=== PATIENT | female | born 1970 | race Caucasian/White ===

== ENCOUNTER 2023-11-30 16:40 | Emergency (ER) | payer MEDICAID, OTHER ==
[~2023-11-30] VITALS: Ht 165.1 cm; Wt 72.3 kg
[2023-11-30 17:01] VITALS: BP 100/70; RESP 18; O2SAT 97
[2023-11-30 17:49] LABS: Basophils # (auto) 0 10 ^3/uL (0-0.2); Basophils % (auto) 0.3 % (0.0-2.0); Eosinophils # (auto) 0 10 ^3/uL (0-0.8); Hematocrit 43.4 % (36.0-46.0); Hemoglobin 13.7 g/dL (12.2-16.2); Lymphocytes # (auto) 0.6 10 ^3/uL (0.4-5.4); Lymphocytes % (auto) 23.7 % (10.0-50.0); Mean Corpuscular Hemoglobin 28.1 pg (28.0-32.0); Mean Corpuscular Hgb Conc. 31.6 g/dL (32.0-36.0); Mean Corpuscular Volume 89.2 fL (80.0-100.0); Monocytes # (auto) 0.2 10 ^3/uL (0-1.3); Monocytes % (auto) 7.7 % (0.0-12.0); Neutrophils # (auto) 1.6 10 ^3/uL (1.6-8.6); Neutrophils % (auto) 68.3 % (37.0-80.0); Nucleated Red Blood Cells % 1.3 %; Red Blood Cells 4.86 10^6/uL (4.0-5.20); White Blood Cell 2.3 10^3/uL (4.4-10.8)
[2023-11-30 17:53] LABS: Red Cell Distribution Width 21.1 % (11.8-14.3)
[2023-11-30 18:11] LABS: Alanine Aminotransferase 39 U/L (7-40); Albumin 3.2 g/dL (3.2-4.8); Alkaline Phosphatase 162 U/L (46-116); Anion Gap 11 (5-15); Aspartate Aminotransferase 101 U/L (13-40); BUN/Creatinine Ratio 26.3 (10.0-20.0); Bilirubin, Total 1.6 mg/dL (0.2-1.0); Blood Urea Nitrogen 15 mg/dL (9-23); Calcium 7.7 mg/dL (8.7-10.4); Carbon Dioxide 27 mmol/L (20-30); Chloride 99 mmol/L (98-107); Glucose 115 mg/dL (74-106); Potassium 3.9 mmol/L (3.5-5.1); Sodium 137 mmol/L (136-145); Total Protein 5.6 g/dL (5.7-8.2)
[2023-11-30 18:46] LABS: Urine Bacteria FEW /hpf (None Seen); Urine Blood Negative /uL (Negative); Urine Clarity Clear (Clear); Urine Color Yellow (Yellow); Urine Protein, UAD 2+ (Negative); Urine Specific Gravity 1.021 (1.001-1.035); Urine Urobilinogen >12.0 mg/dL (Negative); Urine WBC 2 /hpf (0 - 5)
[2023-11-30] MEDS ORDERED: FUROSEMIDE 40 MG/4 ML VIAL IV ONE (22:15)
[2023-11-30 22:35] VITALS: PULSE 99
== END 2023-12-01 01:20 | disposition left against medical advice (07) ==
LOC: ER 16:40
DX: R22.43 Localized swelling, mass and lump, lower limb, bilateral (principal); R53.1 Weakness; R79.89 Other specified abnormal findings of blood chemistry; R07.89 Other chest pain; I50.9 Heart failure, unspecified; I25.2 Old myocardial infarction; Z87.891 Personal history of nicotine dependence
CPT/HCPCS: 36415; 71045; 80053; 80320; 81001; 83880; 84484; 85025; 93005; 93970

== ENCOUNTER 2023-12-19 14:05 | Inpatient (IN) | payer MEDICAID ==
[~2023-12-19] VITALS: Ht 165.1 cm; Wt 66.5 kg
[2023-12-19] MEDS ORDERED: FUROSEMIDE 40 MG/4 ML VIAL IV ONE (14:30)
[2023-12-19 14:51] LABS: Basophils # (auto) 0.1 10 ^3/uL (0-0.2); Basophils % (auto) 0.7 % (0.0-2.0); Eosinophils # (auto) 0 10 ^3/uL (0-0.8); Eosinophils % (auto) 0.1 % (0.0-7.0); Hematocrit 38.6 % (36.0-46.0); Lymphocytes # (auto) 1.6 10 ^3/uL (0.4-5.4); Lymphocytes % (auto) 20.8 % (10.0-50.0); Mean Corpuscular Hemoglobin 29.3 pg (28.0-32.0); Mean Corpuscular Hgb Conc. 31.2 g/dL (32.0-36.0); Mean Corpuscular Volume 93.8 fL (80.0-100.0); Monocytes # (auto) 1.1 10 ^3/uL (0-1.3); Monocytes % (auto) 13.6 % (0.0-12.0); Neutrophils % (auto) 64.8 % (37.0-80.0); Nucleated Red Blood Cells % 0.9 %; Red Blood Cells 4.11 10^6/uL (4.0-5.20); White Blood Cell 7.8 10^3/uL (4.4-10.8)
[2023-12-19 15:00] LABS: Red Cell Distribution Width 25.6 % (11.8-14.3)
[2023-12-19 15:23] LABS: Chloride 106 mmol/L (98-107); Potassium 4.4 mmol/L (3.5-5.1); Sodium 139 mmol/L (136-145)
[2023-12-19 15:24] LABS: Erythrocyte Sedimentation Rate 53 mm/hr (0-20)
[2023-12-19 15:26] LABS: Anion Gap 11 (5-15); Calcium 7.9 mg/dL (8.7-10.4); Carbon Dioxide 22 mmol/L (20-30)
[2023-12-19 15:31] LABS: Alkaline Phosphatase 210 U/L (46-116); BUN/Creatinine Ratio 32.1 (10.0-20.0); Blood Urea Nitrogen 18 mg/dL (9-23); Glucose 121 mg/dL (74-106)
[2023-12-19 15:32] LABS: Magnesium 1.7 mg/dL (1.6-2.6)
[2023-12-19 15:33] LABS: Alanine Aminotransferase 36 U/L (7-40); Albumin 2.7 g/dL (3.2-4.8); Aspartate Aminotransferase 58 U/L (13-40); Bilirubin, Total 3.2 mg/dL (0.2-1.0); Total Protein 5.7 g/dL (5.7-8.2)
[2023-12-19] MEDS ORDERED: MORPHINE SULFATE INJ 2 MG/ml SYRG IV PRN (16:15)
[2023-12-19] MEDS ORDERED: NITROGLYCERIN 0.4 MG SL TAB SL PRN (16:15)
[2023-12-19] MEDS ORDERED: DOCUSATE SOD 100 MG CAP PO PRN (16:15)
[2023-12-19] MEDS ORDERED: ONDANSETRON HCL 4 MG/2 ML VIAL IV PRN (16:15)
[2023-12-19 18:20] LABS: Triglycerides 75 mg/dL (< 150)
[2023-12-19 18:21] LABS: LDL Cholesterol 35 mg/dL (< 100)
[2023-12-19 18:22] LABS: Cholesterol 72 mg/dL (< 200); HDL Cholesterol 22 mg/dL (40-59)
[2023-12-19 19:03] LABS: Lactic Acid w/Reflex 2.3 mmol/L (0.4-2.0)
[2023-12-19] MEDS: FUROSEMIDE 40 MG/4 ML VIAL IV SCH (20:45)
[2023-12-20] MEDS: ENOXAPARIN SOD 100 MG/1 ML SYRINGE SC SCH ×4 (00:38→23:54)
[2023-12-20] MEDS: HYDROcodone-ACET 5/325MG TAB PO PRN ×2 (00:38→20:29)
[2023-12-20] MEDS: PIPERACILLIN-TAZOB 3.375GM 100 ML IV SCH ×4 (00:38→23:43)
[2023-12-20] MEDS: ENOXAPARIN SOD 80 MG/0.8ML SYRINGE SC ONE ×2 (00:46→00:48)
[2023-12-20 01:10] LABS: Amphetamine Screen, Urine Pos (NEGATIVE); Barbiturate Scree,Urine Neg (NEGATIVE); Benzodiazephine Screen, Urine Neg (NEGATIVE); Cocaine Screen, Urine Neg (NEGATIVE)
[2023-12-20 01:11] LABS: Cannabinoid Screen, Urine Pos (NEGATIVE); Opiate Scree,Urine Neg (NEGATIVE); Phencyclidine Screen, Urine Neg (NEGATIVE)
[2023-12-20] MEDS ORDERED: IOHEXOL 350 MG/ML 100ML IJ ONE (01:28)
[2023-12-20 01:34] VITALS: PULSE 123; RESP 25; O2SAT 96
[2023-12-20] MEDS: FUROSEMIDE 40 MG/4 ML VIAL IV SCH ×2 (06:07→18:45)
[2023-12-20 06:27] LABS: Hematocrit 37.3 % (36.0-46.0); Hemoglobin 11.6 g/dL (12.2-16.2); Mean Corpuscular Hgb Conc. 31.1 g/dL (32.0-36.0); Mean Corpuscular Volume 93.3 fL (80.0-100.0); White Blood Cell 9.4 10^3/uL (4.4-10.8)
[2023-12-20 06:39] LABS: Alanine Aminotransferase 29 U/L (7-40); Albumin 2.9 g/dL (3.2-4.8); Alkaline Phosphatase 201 U/L (46-116); Anion Gap 6 (5-15); Aspartate Aminotransferase 48 U/L (13-40); BUN/Creatinine Ratio 18.8 (10.0-20.0); Blood Urea Nitrogen 15 mg/dL (9-23); Calcium 8.5 mg/dL (8.5-10.1); Carbon Dioxide 27 mmol/L (20-30); Chloride 104 mmol/L (98-107); Glucose 150 mg/dL (74-106); Potassium 4.1 mmol/L (3.5-5.1); Sodium 137 mmol/L (136-145)
[2023-12-20 06:40] LABS: Bilirubin, Total 2.7 mg/dL (0.2-1.0); Total Protein 6.2 g/dL (5.7-8.2)
[2023-12-20 07:14] LABS: Basophils % (manual) 0 (0.0-2.0); Blast Cells 0; Eosinophils % (manual) 0 (0-7); Myelocytes % 0; Promyelocytes % 0; Reactive Lymphocytes 0; Red Cell Distribution Width 25.4 % (11.8-14.3)
[2023-12-20 08:00] VITALS: PULSE 109; RESP 15; O2SAT 98
[2023-12-20] MEDS ORDERED: ENOXAPARIN SOD 40 MG/0.4 ML SYRINGE SC SCH (10:00)
[2023-12-20] MEDS ORDERED: ENOXAPARIN SOD 100 MG/1 ML SYRINGE SC SCH (10:00)
[2023-12-20] MEDS: NICOTINE 7MG/24HR TOPICAL PATCH TD SCH (10:00)
[2023-12-20 13:28] LABS: Band Neutrophils % (manual) 2; Lymphocytes % (manual) 31 (10.0-50.0); Metamyelocytes % 1; Monocytes % (manual) 12 (0-12)
[2023-12-20 13:29] LABS: Platelet Estimate Adequate
[2023-12-20 22:00] VITALS: BP 97/68; PULSE 133; PULSE 70; RESP 19; RESP 22; TEMP 98.4; O2SAT 92
[2023-12-20] MEDS ORDERED: LOSA25TA15 PO (22:43)
[2023-12-20] MEDS ORDERED: METO25TA93 PO (22:43)
[2023-12-20] MEDS ORDERED: FURO20TA3 PO (22:45)
[2023-12-21] VITALS (8 sets, daily range): BP systolic 114–122; BP diastolic 67–85; PULSE 117–134; RESP 17–22; TEMP 97.7–97.8; O2SAT 93–98
[2023-12-21] MEDS ORDERED: METOPROLOL TARTRATE 1MG/1ML-5ML VIAL IV ONE (04:00)
[2023-12-21 04:48] LABS: Alanine Aminotransferase 27 U/L (7-40); Albumin 2.7 g/dL (3.2-4.8); Alkaline Phosphatase 166 U/L (46-116); Anion Gap 4 (5-15); Aspartate Aminotransferase 48 U/L (13-40); BUN/Creatinine Ratio 24.1 (10.0-20.0); Blood Urea Nitrogen 14 mg/dL (9-23); Calcium 8.2 mg/dL (8.7-10.4); Carbon Dioxide 29 mmol/L (20-30); Chloride 103 mmol/L (98-107); Glucose 114 mg/dL (74-106); Magnesium 1.7 mg/dL (1.6-2.6); Potassium 3.9 mmol/L (3.5-5.1); Sodium 136 mmol/L (136-145)
[2023-12-21 04:49] LABS: Bilirubin, Total 2.2 mg/dL (0.2-1.0)
[2023-12-21] MEDS: FUROSEMIDE 40 MG/4 ML VIAL IV SCH ×2 (06:42→18:07)
[2023-12-21] MEDS: PIPERACILLIN-TAZOB 3.375GM 100 ML IV SCH ×3 (06:42→23:13)
[2023-12-21] MEDS: HYDROcodone-ACET 5/325MG TAB PO PRN ×2 (08:24→14:53)
[2023-12-21] MEDS: ENOXAPARIN SOD 100 MG/1 ML SYRINGE SC SCH (10:43)
[2023-12-21] MEDS: NICOTINE 7MG/24HR TOPICAL PATCH TD SCH (10:44)
[2023-12-21] MEDS: ACETAMINOPHEN 325 MG TAB PO PRN (18:07)
[2023-12-21] MEDS ORDERED: TEMAZEPAM 15 MG CAP PO ONE (21:15)
[2023-12-21] MEDS: ENOXAPARIN SOD 80 MG/0.8ML SYRINGE SC SCH (23:13)
[2023-12-21 23:36] LABS: Potassium 4.3 mmol/L (3.5-5.1)
[2023-12-21 23:43] LABS: Magnesium 1.7 mg/dL (1.6-2.6)
[2023-12-22] VITALS (7 sets, daily range): BP systolic 120–152; BP diastolic 67–96; PULSE 134–138; RESP 18–20; TEMP 97.1–98.4; O2SAT 94–97
[2023-12-22] MEDS: MAGNESIUM SULFATE 1GM/100ML 100 ML IV SCH ×2 (07:56→10:09)
[2023-12-22] MEDS: FUROSEMIDE 40 MG/4 ML VIAL IV SCH ×2 (07:57→17:53)
[2023-12-22] MEDS: ENOXAPARIN SOD 80 MG/0.8ML SYRINGE SC SCH (08:37)
[2023-12-22] MEDS: NICOTINE 7MG/24HR TOPICAL PATCH TD SCH (08:38)
[2023-12-22] MEDS: HYDROcodone-ACET 5/325MG TAB PO PRN ×3 (08:38→19:50)
[2023-12-22] MEDS: PIPERACILLIN-TAZOB 3.375GM 100 ML IV SCH (13:35)
[2023-12-23] VITALS (7 sets, daily range): BP systolic 112–138; BP diastolic 20–89; PULSE 117–138; RESP 15–21; TEMP 96.7–98; O2SAT 90–95
[2023-12-23] MEDS: ENOXAPARIN SOD 80 MG/0.8ML SYRINGE SC SCH ×3 (00:15→21:34)
[2023-12-23] MEDS: PIPERACILLIN-TAZOB 3.375GM 100 ML IV SCH ×4 (00:15→21:22)
[2023-12-23] MEDS: HYDROcodone-ACET 5/325MG TAB PO PRN ×4 (04:55→20:08)
[2023-12-23] MEDS: FUROSEMIDE 40 MG/4 ML VIAL IV SCH ×2 (07:37→18:08)
[2023-12-23 08:27] LABS: Hepatitis B Surface Antigen Negative (Negative)
[2023-12-23] MEDS: NICOTINE 7MG/24HR TOPICAL PATCH TD SCH (09:40)
[2023-12-23 09:48] LABS: Hepatitis C Antibody Reactive (Negative)
[2023-12-23] MEDS ORDERED: METOPROLOL SUCCINATE XL 50 MG TAB PO ONE (11:15)
[2023-12-23] MEDS: METOPROLOL TARTRATE 25 MG TAB PO SCH (21:28)
[2023-12-24] MEDS: HYDROcodone-ACET 5/325MG TAB PO PRN ×3 (00:18→11:18)
[2023-12-24 05:00] VITALS: BP 122/89; PULSE 105; RESP 17; TEMP 97.5; O2SAT 93
[2023-12-24] MEDS: ACETAMINOPHEN 325 MG TAB PO PRN (05:04)
[2023-12-24] MEDS: PIPERACILLIN-TAZOB 3.375GM 100 ML IV SCH ×2 (06:24→13:52)
[2023-12-24] MEDS: FUROSEMIDE 40 MG/4 ML VIAL IV SCH (06:28)
[2023-12-24 08:00] VITALS: PULSE 107; PULSE 109; RESP 20; O2SAT 95
[2023-12-24 09:27] VITALS: BP 110/69; PULSE 64; RESP 20; TEMP 98.4; O2SAT 91
[2023-12-24] MEDS: METOPROLOL TARTRATE 25 MG TAB PO SCH (09:34)
[2023-12-24] MEDS: ENOXAPARIN SOD 80 MG/0.8ML SYRINGE SC SCH (09:34)
[2023-12-24] MEDS: NICOTINE 7MG/24HR TOPICAL PATCH TD SCH (09:35)
[2023-12-24] MEDS ORDERED: METOPROLOL SUCCINATE XL 50 MG TAB PO SCH (10:00)
[2023-12-24] MEDS ORDERED: APIXABAN 5 MG TAB PO SCH (11:30)
[2023-12-24] MEDS ORDERED: APIX5TAB PO (12:45)
[2023-12-24] MEDS ORDERED: AUG875T PO (12:45)
[2023-12-24 13:00] VITALS: BP_SYST 75; PULSE 56; RESP 19; TEMP 97.9; O2SAT 96
[2023-12-24 13:17] VITALS: BP 114/85; PULSE 104; TEMP 36.9
== END 2023-12-24 15:45 | disposition home or self-care (01) | DRG 133 ==
LOC: EDBD 14:05 → ER 14:05 → TELE 16:16 → TELE-WESTW 12-20 19:21
PROVIDERS: ADMIT Internal Medicine; ATTEND Internal Medicine
DX: J96.01 Acute respiratory failure with hypoxia (principal); I26.99 Other pulmonary embolism without acute cor pulmonale; I50.43 Acute on chronic combined systolic (congestive) and diastolic (congestive) heart failure; I82.402 Acute embolism and thrombosis of unspecified deep veins of left lower extremity; I42.9 Cardiomyopathy, unspecified; J18.9 Pneumonia, unspecified organism; F15.10 Other stimulant abuse, uncomplicated; E66.9 Obesity, unspecified; F17.210 Nicotine dependence, cigarettes, uncomplicated; I45.10 Unspecified right bundle-branch block; B19.20 Unspecified viral hepatitis C without hepatic coma; Z71.51 Drug abuse counseling and surveillance of drug abuser; I25.2 Old myocardial infarction; Z91.199 Patient's noncompliance with other medical treatment and regimen due to unspecified reason; Z79.01 Long term (current) use of anticoagulants; Z79.899 Other long term (current) drug therapy; Z86.711 Personal history of pulmonary embolism; Z86.718 Personal history of other venous thrombosis and embolism; Z91.148 Patient's other noncompliance with medication regimen for other reason; Z71.6 Tobacco abuse counseling; Z82.49 Family history of ischemic heart disease and other diseases of the circulatory system; Z68.30 Body mass index [BMI] 30.0-30.9, adult
CPT/HCPCS: 36415; 71045; 71275; 80053; 80061; 80307; 83036; 83605; 83735; 83880; 84132; 84443; 84484; 84702; 85007; 85025; 85027; 85379; 85652; 86803; 87077; 87186; 87205; 87340; 93005; 93306; 93926; 93970; 96374; 96375; 99291; G0378; J2543

== ENCOUNTER 2024-07-09 13:55 | Inpatient (IN) | payer MEDICAID ==
[~2024-07-09] VITALS: Ht 160 cm; Wt 68.7 kg
[~2024-07-09 13:55] MED LIST: APIX5TAB PO; AUG875T PO; FURO20TA3 PO; LOSA-533 PO; METO25TA93 PO
[2024-07-09 14:21] VITALS: PULSE 99; RESP 17; O2SAT 99
[2024-07-09 14:24] LABS: Basophils # (auto) 0.1 10 ^3/uL (0-0.2); Basophils % (auto) 1.2 % (0.0-2.0); Eosinophils # (auto) 0 10 ^3/uL (0-0.8); Lymphocytes # (auto) 1.1 10 ^3/uL (0.4-5.4); Neutrophils # (auto) 2.7 10 ^3/uL (1.6-8.6); White Blood Cell 4.7 10^3/uL (4.4-10.8)
[2024-07-09 14:31] LABS: Eosinophils % (auto) 0.7 % (0.0-7.0); Hematocrit 38.2 % (36.0-46.0); Mean Corpuscular Hemoglobin 26.8 pg (28.0-32.0); Mean Corpuscular Hgb Conc. 31.4 g/dL (32.0-36.0); Mean Corpuscular Volume 85.4 fL (80.0-100.0); Monocytes # (auto) 0.8 10 ^3/uL (0-1.3); Monocytes % (auto) 17.7 % (0.0-12.0); Neutrophils % (auto) 57.4 % (37.0-80.0); Nucleated Red Blood Cells % 0.4 %; Platelet Count (auto) 153 10^3/uL (140-450); Red Blood Cells 4.47 10^6/uL (4.0-5.20); Red Cell Distribution Width 23.7 % (11.8-14.3)
[2024-07-09 14:37] LABS: Chloride 101 mmol/L (98-107); Potassium 3.8 mmol/L (3.5-5.1); Sodium 140 mmol/L (136-145)
[2024-07-09 14:38] LABS: Anion Gap 8 (5-15); Calcium 10.2 mg/dL (8.7-10.4); Carbon Dioxide 31 mmol/L (20-30)
[2024-07-09 14:43] LABS: Blood Urea Nitrogen 12 mg/dL (9-23); Glucose 102 mg/dL (74-106)
[2024-07-09] MEDS: SODIUM CHLORIDE 0.9% 1,000 ML IVB ONE (15:39)
[2024-07-09] MEDS: ONDANSETRON HCL 4 MG/2 ML VIAL IV ONE (16:39)
[2024-07-09] MEDS: MORPHINE SULFATE 4 MG/ML SYR/VIAL IV ONE (16:40)
[2024-07-09] MEDS ORDERED: DOCUSATE SOD 100 MG CAP PO PRN (17:15)
[2024-07-09] MEDS ORDERED: ACETAMINOPHEN 325 MG TAB PO PRN (17:15)
[2024-07-09] MEDS: FUROSEMIDE 40 MG/4 ML VIAL IV SCH (18:31)
[2024-07-09 19:23] LABS: Urine Bacteria FEW /hpf (None Seen); Urine Blood Negative /uL (Negative); Urine Clarity Turbid (Clear); Urine Color Yellow (Yellow); Urine Hyaline Cast FEW /lpf (0 - 2); Urine Mucus FEW (None Seen); Urine Protein, UAD 1+ (Negative); Urine Specific Gravity 1.017 (1.001-1.035); Urine Urobilinogen Normal (Negative); Urine WBC 30 /hpf (0 - 5); Urine WBC Clumps PRESENT /hpf (None Seen); Urine pH 5.5 (5.0-9.0)
[2024-07-09 19:36] LABS: Amphetamine Screen, Urine Neg (NEGATIVE); Benzodiazephine Screen, Urine Neg (NEGATIVE)
[2024-07-09 19:37] LABS: Barbiturate Scree,Urine Neg (NEGATIVE); Cocaine Screen, Urine Neg (NEGATIVE)
[2024-07-09 19:38] LABS: Cannabinoid Screen, Urine Pos (NEGATIVE); Opiate Scree,Urine Pos (NEGATIVE); Phencyclidine Screen, Urine Neg (NEGATIVE)
[2024-07-09 20:42] VITALS: PULSE 92; RESP 16; O2SAT 96
[2024-07-09] MEDS: APIXABAN 5 MG TAB PO SCH (22:23)
[2024-07-09] MEDS: HYDROmorphone HCL 2 MG/ML VL/or syr IV PRN (22:24)
[2024-07-09] MEDS: SODIUM CHLOR 0.9% PF (SALINE LOCK) 10ML VIAL/SYR IV SCH (22:25)
[2024-07-09] MEDS: ONDANSETRON HCL 4 MG/2 ML VIAL IV PRN (22:34)
[2024-07-10 04:13] LABS: Basophils # (auto) 0.1 10 ^3/uL (0-0.2); Basophils % (auto) 1.4 % (0.0-2.0); Eosinophils # (auto) 0 10 ^3/uL (0-0.8); Eosinophils % (auto) 0.8 % (0.0-7.0); Hematocrit 40.9 % (36.0-46.0); Hemoglobin 12.4 g/dL (12.2-16.2); Lymphocytes # (auto) 1.5 10 ^3/uL (0.4-5.4); Lymphocytes % (auto) 30.8 % (10.0-50.0); Mean Corpuscular Hemoglobin 26.7 pg (28.0-32.0); Mean Corpuscular Hgb Conc. 30.4 g/dL (32.0-36.0); Mean Corpuscular Volume 87.9 fL (80.0-100.0); Monocytes # (auto) 0.9 10 ^3/uL (0-1.3); Monocytes % (auto) 17.7 % (0.0-12.0); Neutrophils # (auto) 2.5 10 ^3/uL (1.6-8.6); Neutrophils % (auto) 49.3 % (37.0-80.0); Nucleated Red Blood Cells % 0.4 %; Platelet Count (auto) 155 10^3/uL (140-450); Red Blood Cells 4.66 10^6/uL (4.0-5.20); Red Cell Distribution Width 23.8 % (11.8-14.3)
[2024-07-10 04:28] LABS: Alanine Aminotransferase 34 U/L (7-40); Albumin 3.7 g/dL (3.2-4.8); Alkaline Phosphatase 143 U/L (46-116); Anion Gap 9 (5-15); Aspartate Aminotransferase 55 U/L (13-40); Blood Urea Nitrogen 13 mg/dL (9-23); Calcium 9.4 mg/dL (8.7-10.4); Carbon Dioxide 29 mmol/L (20-30); Chloride 102 mmol/L (98-107); Glucose 97 mg/dL (74-106); Potassium 3.5 mmol/L (3.5-5.1); Sodium 140 mmol/L (136-145)
[2024-07-10 04:29] LABS: Bilirubin, Total 3.5 mg/dL (0.2-1.0); Total Protein 7.2 g/dL (5.7-8.2)
[2024-07-10 07:35] VITALS: PULSE 90; RESP 18; O2SAT 98
[2024-07-10] MEDS: LOSARTAN POTASSIUM 25 MG TAB PO SCH (09:44)
[2024-07-10] MEDS: HYDROcodone-ACET 5/325MG TAB PO PRN (09:53)
[2024-07-10] MEDS: MAGNESIUM SULFATE 1GM/100ML 100 ML IV STA (14:15)
[2024-07-10] MEDS: SPIRONOLACTONE 25 MG TAB PO ONE (16:22)
[2024-07-10 20:20] VITALS: PULSE 91; RESP 16; O2SAT 95
[2024-07-10 21:34] VITALS: BP 108/69; PULSE 87; RESP 18; TEMP 98.1; O2SAT 100
[2024-07-10 23:26] VITALS: BP 108/69; PULSE 87; RESP 20; TEMP 98.1; O2SAT 100
[2024-07-11] VITALS (8 sets, daily range): BP systolic 100–124; BP diastolic 70–96; PULSE 56–98; RESP 16–18; TEMP 97.6–98.4; O2SAT 96–99
[2024-07-11] MEDS ORDERED: ONDANSETRON HCL 4 MG/2 ML VIAL ONE (09:06)
[2024-07-11] MEDS: SPIRONOLACTONE 25 MG TAB PO SCH (09:10)
[2024-07-11] MEDS: LOSARTAN POTASSIUM 25 MG TAB PO STA (09:12)
[2024-07-11] MEDS: EMPAGLIFLOZIN 10 MG TAB PO SCH (09:12)
[2024-07-11 10:14] LABS: Hemoglobin 11.6 g/dL (12.2-16.2); White Blood Cell 4.7 10^3/uL (4.4-10.8)
[2024-07-11 10:17] LABS: Hematocrit 36.8 % (36.0-46.0); Mean Corpuscular Hemoglobin 26.8 pg (28.0-32.0); Mean Corpuscular Hgb Conc. 31.5 g/dL (32.0-36.0); Mean Corpuscular Volume 84.9 fL (80.0-100.0); Platelet Count (auto) 162 10^3/uL (140-450); Red Blood Cells 4.33 10^6/uL (4.0-5.20)
[2024-07-11 10:22] LABS: Red Cell Distribution Width 23.2 % (11.8-14.3)
[2024-07-11 10:24] LABS: Band Neutrophils % (manual) 0; Basophils % (manual) 0 (0.0-2.0); Blast Cells 0; Eosinophils % (manual) 0 (0-7); Metamyelocytes % 0; Myelocytes % 0; Promyelocytes % 0; Reactive Lymphocytes 0
[2024-07-11 10:35] LABS: Alanine Aminotransferase 30 U/L (7-40); Albumin 3.5 g/dL (3.2-4.8); Alkaline Phosphatase 127 U/L (46-116); Anion Gap 4 (5-15); Aspartate Aminotransferase 51 U/L (13-40); BUN/Creatinine Ratio 16.3 (10.0-20.0); Blood Urea Nitrogen 16 mg/dL (9-23); Calcium 8.9 mg/dL (8.7-10.4); Carbon Dioxide 38 mmol/L (20-30); Chloride 96 mmol/L (98-107); Glucose 110 mg/dL (74-106); Potassium 3.4 mmol/L (3.5-5.1); Sodium 138 mmol/L (136-145)
[2024-07-11 10:36] LABS: Bilirubin, Total 3.2 mg/dL (0.2-1.0); Total Protein 6.4 g/dL (5.7-8.2)
[2024-07-11 10:40] LABS: Lymphocytes % (manual) 30 (10.0-50.0); Monocytes % (manual) 11 (0-12); Platelet Estimate Adequate
[2024-07-11] MEDS ORDERED: METO-6 PO (14:55)
[2024-07-11] MEDS ORDERED: SPIR25TA PO (14:55)
[2024-07-11] MEDS ORDERED: EMPA1TAB PO (14:55)
[2024-07-11] MEDS: METOPROLOL SUCCINATE XL 50 MG TAB PO ONE (15:48)
[2024-07-12] VITALS (7 sets, daily range): BP systolic 100–108; BP diastolic 69–87; PULSE 68–90; RESP 17–19; TEMP 97.7–98.3; O2SAT 92–98
[2024-07-12] MEDS: METOPROLOL SUCCINATE XL 50 MG TAB PO SCH (10:11)
[2024-07-12] MEDS: LOSARTAN POTASSIUM 25 MG TAB PO SCH (10:12)
[2024-07-12] MEDS: POTASSIUM CHL 20 Meq TABLET PO STA (10:19)
[2024-07-12 10:41] LABS: Basophils # (auto) 0.1 10 ^3/uL (0-0.2); Eosinophils # (auto) 0.1 10 ^3/uL (0-0.8); Hemoglobin 11.9 g/dL (12.2-16.2); Monocytes # (auto) 1.1 10 ^3/uL (0-1.3); Neutrophils # (auto) 2.7 10 ^3/uL (1.6-8.6); White Blood Cell 4.9 10^3/uL (4.4-10.8)
[2024-07-12 10:43] LABS: Basophils % (auto) 1.3 % (0.0-2.0); Eosinophils % (auto) 1.3 % (0.0-7.0); Hematocrit 37.8 % (36.0-46.0); Lymphocytes % (auto) 20.4 % (10.0-50.0); Mean Corpuscular Hemoglobin 27.2 pg (28.0-32.0); Mean Corpuscular Hgb Conc. 31.6 g/dL (32.0-36.0); Neutrophils % (auto) 54.2 % (37.0-80.0); Nucleated Red Blood Cells % 0.4 %; Platelet Count (auto) 147 10^3/uL (140-450)
[2024-07-12 10:50] LABS: Monocytes % (auto) 22.8 % (0.0-12.0)
[2024-07-12 11:07] LABS: Alanine Aminotransferase 38 U/L (7-40); Albumin 3.6 g/dL (3.2-4.8); Alkaline Phosphatase 134 U/L (46-116); Anion Gap 5 (5-15); Aspartate Aminotransferase 55 U/L (13-40); Bilirubin, Total 3.1 mg/dL (0.2-1.0); Blood Urea Nitrogen 20 mg/dL (9-23); Calcium 8.9 mg/dL (8.7-10.4); Carbon Dioxide 35 mmol/L (20-30); Chloride 95 mmol/L (98-107); Glucose 158 mg/dL (74-106); Sodium 135 mmol/L (136-145); Total Protein 6.7 g/dL (5.7-8.2)
[2024-07-13] VITALS (9 sets, daily range): BP systolic 100–113; BP diastolic 65–78; PULSE 60–84; RESP 16–22; TEMP 97.2–98; O2SAT 91–100
[2024-07-13 05:50] LABS: Basophils # (auto) 0.1 10 ^3/uL (0-0.2); Basophils % (auto) 1.1 % (0.0-2.0); Eosinophils # (auto) 0.1 10 ^3/uL (0-0.8); Eosinophils % (auto) 1.2 % (0.0-7.0); Hematocrit 41.7 % (36.0-46.0); Hemoglobin 13.3 g/dL (12.2-16.2); Lymphocytes # (auto) 1.5 10 ^3/uL (0.4-5.4); Mean Corpuscular Hemoglobin 27.8 pg (28.0-32.0); Mean Corpuscular Hgb Conc. 31.9 g/dL (32.0-36.0); Mean Corpuscular Volume 87.1 fL (80.0-100.0); Monocytes # (auto) 0.9 10 ^3/uL (0-1.3); Monocytes % (auto) 13.7 % (0.0-12.0); Nucleated Red Blood Cells % 0.5 %; Platelet Count (auto) 177 10^3/uL (140-450); Red Blood Cells 4.79 10^6/uL (4.0-5.20); White Blood Cell 6.6 10^3/uL (4.4-10.8)
[2024-07-13 06:16] LABS: Alanine Aminotransferase 42 U/L (7-40); Albumin 3.8 g/dL (3.2-4.8); Alkaline Phosphatase 137 U/L (46-116); Anion Gap 5 (5-15); Aspartate Aminotransferase 62 U/L (13-40); BUN/Creatinine Ratio 22.7 (10.0-20.0); Blood Urea Nitrogen 22 mg/dL (9-23); Calcium 9.5 mg/dL (8.7-10.4); Carbon Dioxide 32 mmol/L (20-30); Chloride 97 mmol/L (98-107); Glucose 87 mg/dL (74-106); Potassium 5.5 mmol/L (3.5-5.1); Sodium 134 mmol/L (136-145)
[2024-07-13 06:17] LABS: Bilirubin, Total 3.4 mg/dL (0.2-1.0)
[2024-07-13 06:21] LABS: Red Cell Distribution Width 23.8 % (11.8-14.3)
[2024-07-13] MEDS: ALBUTEROL SULF 2.5 MG/0.5ML(0.5%) NEB SOLN NEB ONE (08:12)
[2024-07-13 09:01] LABS: Hepatitis B Surface Antigen Negative (Negative)
[2024-07-13 09:22] LABS: Hepatitis A Ab IgM Negative
[2024-07-13 09:23] LABS: Hepatitis B Core IgM Negative
[2024-07-13] MEDS: FUROSEMIDE 40 MG/4 ML VIAL IV SCH (09:36)
[2024-07-13] MEDS: FUROSEMIDE 20 MG/2 ML VIAL IV ONE (09:57)
[2024-07-13] MEDS: SODIUM ZIRCONIUM CYCL 10 GM PAK PO ONE (09:57)
[2024-07-13] MEDS: SODIUM BICARB 8.4% 50Meq/50ml SYR INJ IV ONE (09:59)
[2024-07-13] MEDS ORDERED: APIX5TAB PO (11:32)
[2024-07-13 15:00] LABS: Hepatitis C Antibody Positive (Negative)
== END 2024-07-13 20:30 | disposition home or self-care (01) | DRG 133 ==
LOC: EDBD 13:55 → ER 13:55 → TELE 17:16 → TELE-WESTW 07-10 17:16
PROVIDERS: ADMIT Internal Medicine Pulmonary Disease; ATTEND Emergency Medicine
DX: J96.21 Acute and chronic respiratory failure with hypoxia (principal); I50.43 Acute on chronic combined systolic (congestive) and diastolic (congestive) heart failure; I27.20 Pulmonary hypertension, unspecified; I42.7 Cardiomyopathy due to drug and external agent; I11.0 Hypertensive heart disease with heart failure; I48.91 Unspecified atrial fibrillation; E78.5 Hyperlipidemia, unspecified; F17.200 Nicotine dependence, unspecified, uncomplicated; E87.6 Hypokalemia; I25.10 Atherosclerotic heart disease of native coronary artery without angina pectoris; I73.9 Peripheral vascular disease, unspecified; R73.03 Prediabetes; R74.01 Elevation of levels of liver transaminase levels; I08.1 Rheumatic disorders of both mitral and tricuspid valves; I49.3 Ventricular premature depolarization; Z79.2 Long term (current) use of antibiotics; Z79.899 Other long term (current) drug therapy; Z82.49 Family history of ischemic heart disease and other diseases of the circulatory system; Z86.711 Personal history of pulmonary embolism; Z79.01 Long term (current) use of anticoagulants
CPT/HCPCS: 36415; 71045; 71275; 76705; 80048; 80053; 80074; 80307; 81001; 83735; 83880; 84132; 84484; 85007; 85025; 85027; 93005; 93306; 93970; 94640; 99291; G0378; J2405

== ENCOUNTER 2025-07-04 23:11 | Emergency (ER) | payer MEDICAID ==
[~2025-07-04] VITALS: Ht 167.6 cm; Wt 72.6 kg
[~2025-07-04 23:11] MED LIST changes: -AUG875T PO; +EMPA1TAB PO; +METO-6 PO; +SPIR25TA PO
[2025-07-04 23:21] VITALS: BP 0/0; PULSE 0; RESP 0; TEMP 97.5; O2SAT 0
--- NOTE | 2025-07-04 23:35 | ED.PDOC ---
CPR-HPI HPI Comments 55-year-old female with past medical history of hypertension, diabetes, atrial fibrillation (on Eliquis), coronary artery disease, heart failure brought in by medics in full cardiac arrest. History is taken from the medics who got the history on scene. They state that the did not provide much additional history. He states that he last saw her alive approximately 20 minutes prior to when he found her down. He did not provide any additional history as to whether the patient had been feeling unwell over the past few days. He denied any history of drug use. He denied any recent trauma. Medics state that patient was in asystole most of the time, however, they did deliver some shocks in gave numerous rounds of ACLS medications. Additional history taken from the patient's sister and the son who arrived after the patient . The patient stated that she felt like she was going to pass out. She then collapsed. Family members did not initiate CPR. They state that it took the medics 20 minutes to arrive. They deny patient reporting any other symptoms leading up to today's event. Time Seen by MD: 23:19 Primary Care Provider: UNKNOWN Allergies: Coded Allergies: NO KNOWN ALLERGIES (Unverified , 11/30/23) Home Meds Active Scripts Apixaban Base (ELIQUIS) 5 Mg Tab, 5 MG PO BID for 30 Days, #60 TAB 2 Refills Please start on December 30 evening dose Prov:JOVITA JACKSON RESIDENT 07/13/24 Spironolactone (Aldactone) 25 Mg Tab, 25 MG PO DAILY for 30 Days, #30 TAB 2 Refills Prov:JOVITA JACKSON RESIDENT 07/11/24 Metoprolol Succinate (Toprol Xl) 50 Mg Tab, 25 MG PO DAILY for 30 Days, #15 TAB 2 Refills Prov:JOVITA JACKSON RESIDENT 07/11/24 Empagliflozin (Jardiance) 10 Mg Tab, 10 MG PO DAILY for 30 Days, #30 TAB 2 Refills Prov:JOVITA JACKSON RESIDENT 07/11/24 Reported Medications Furosemide (Furosemide) 20 Mg Tab, 20 MG PO BID, TAB 12/20/23 Losartan Potassium (Losartan Potassium) 25 Mg Tab, 1 TAB PO DAILY, #90 TAB 1 Refill 12/20/23 Metoprolol Succinate (Metoprolol Succinate Er) 25 Mg Tab, 25 MG PO BIDWM, TAB 12/20/23 Information Source: Relative (Child), Emergency Med Personnel Mode of Arrival: EMS Duration: Down time prior EMS: (at least 20 mins), Total time prior hopital: (at least 45 mins with EMS) Available Hx: Prior Cardiac Disease Treatment: CPR, Epinephrine, Other (sodium bicarb) Response: No response Past Medical History PAST MEDICAL HISTORY: AFIB, CAD, CHF, High Lipids, HTN, [place] BRUSH [employer] BROOM [employer]IP[employer] History: Denies all 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 Family History Family History: Reviewed,noncontributory to illness Social History Smoker: Quit Less Than 1 Year Alcohol: Occasionally Drugs: Marijuana, Methamphetamine Lives In: Home Unable to Obtain due to: Other (CPR in progress) Physical Exam General Appearance: Severe Distress HEENT: Other (Bilateral pupils are fixed, dilated, not responsive to light) Neck: Normal Respiratory: Other (Assisted ventilation with BVM/endotracheal intubation tube) Cardiovascular: Other (No palpable pulses) Breast Exam: Normal Gastrointestinal: Distended Genitalia: Normal Pelvic: Deferred Rectal: Deferred Extremities: Other (Flaccid extremities) Neurologic: Other (Obtunded, fixed, dilated pupils) Cerebellar Function: Unable to Test Reflexes: None Skin: Dry, Pallor, Other (pooling of blood noted within abdomen/extremities; cool to touch) Lymphatic: NOT DONE Was a procedure done? Was a procedure done?: No Differential Dx CPR Differential Diagnosis: Cardiopulmonary arrest, Dysrhythmia, Myocardial Infarction, Pulmonary Embolus X-Ray, Labs, Meds, VS Vital Signs Date Time Temp Pulse Resp B/P (MAP) Pulse Ox O2 Delivery O2 Flow Rate FiO2 07/05/25 02:18 0 07/05/25 02:15 0 0 Ambu-Bag 07/04/25 23:21 97.5 0 0 0/0 0 97.5 Time of 1ST Reevaluation: 23:15 (Time of called at 23:15 p.m.) Reevaluation 1ST: Unchanged Patient Education/Counseling: Pt Unresponsive Family Education/Counseling: No Family Present SEPSIS Sepsis Screen Vital Signs Date Time Temp Pulse Resp B/P (MAP) Pulse Ox O2 Delivery O2 Flow Rate FiO2 07/05/25 02:18 0 07/05/25 02:15 0 0 Ambu-Bag 07/04/25 23:21 97.5 0 0 0/0 0 97.5 Departure 1 Departure Time of Disposition: 23:15 (Patient reporting feeling that she was going to pass out and then collapsed in the arms of her family members. Patient was down for at least 20 minutes by the time medics arrived with no CPR performed. Medics have been working on the patient for another approximately 45 minutes which means that the patient has been down for over 1 hour. Patient does have numerous comorbidities and cardiac disease. Because she was reporting feeling like she was going to pass out prior to going into cardiac arrest back that she may have had a myocardial infarction leading to sudden cardiac . Patient takes a blood thinner, to not suspect pulmonary embolism that may have led to cardiopulmonary arrest. Upon arrival patient has pupils that are fixed, dilated, skin is cool to touch, already has some pooling of blood. One round of ACLS was performed, I performed a bedside ultrasound which showed no cardiac activity. Time of was called at 23:15 p.m. Patient's sister and son arrived to the emergency department shortly after, they were informed of the patient's passing.) Impression: Primary Impression: Cardiopulmonary arrest Disposition: 20 Condition: Critical Critical Care Note Critical Care Time?: No Heart Score Heart Score: Heart Score Response (Comments) Value History Highly Suspicious 2 EKG N/A 0 Age 45-64 1 Risk Factors >3 or Hx ASHD 2 Troponin N/A 0 Total 5 Stability Stability form required: LADARIUS Kimball MD Jul 04, 2025 23:35
--- NOTE | 2025-07-05 00:26 | RESUS ---
CODE BLUE ASSESSSMENT History of Events History of Events: 55-year-old female with past medical history of hypertension, diabetes, atrial fibrillation (on Eliquis), coronary artery disease, heart failure brought in by medics in full cardiac arrest. History is taken from the medics who got the history on scene. They state that the did not provide much additional history. He states that he last saw her alive approximately 20 minutes prior to when he found her down. Per EMS He did not provide any additional history as to whether the patient had been feeling unwell over the past few days. He denied any history of drug use. He denied any recent trauma. Medics state that patient was in asystole most of the time, however, they did deliver some shocks in gave numerous rounds of ACLS medications. Initial Information Date: Jul 04, 2025 Time: 23:11 Location of Arrest: In Field Arrest Witnessed: No CPR started by whom: EMS Pre-Hospital Care: ACLS Type of arrest: Cardiac, Respiratory, Adult, Unwitnessed Spontaneous Respirations: No Pulse Present: No Monitoring: ECG, Pulse Oximetry, Telemetry Crash Cart Opened and Supplies: Yes Airway Ventilation Breathing at Onset: Assisted Oxygen Delivery Method: Ambu-Bag Intubation Size: 6.0 cuffed Intubated by: EMS IN FIELD Intubated orally: Yes Tube secured at: 19 (@ lip) Confirmation: Auscultation Circulation Circulation #1: Time: 23:11 Pulse Rate (adult): 0 Blood Pressure Systolic: 0 Blood Pressure Diastolic: 0 Circulation Comment: Arrival - chest compressions via auto pulse Circulation #2: Time: 23:13 Pulse Rate (adult): 0 (0) Blood Pressure Systolic: 0 Blood Pressure Diastolic: 0 Temperature (Fahrenheit): 97.5 Circulation Comment: Asystole Blood sugar 485 - Temp 97.5 rectal Circulation #3: Time: 23:15 Pulse Rate (adult): 0 Blood Pressure Systolic: 0 Blood Pressure Diastolic: 0 Circulation Comment: Asystole TOD [address] Ortega Procedure - Intraosseous Time of intraosseous: 23:11 Site of Intraosseous: Tibia sergey-medial Intraosseous inserted by: EMS on the field Medications & Response Medications and Responses #1: Medication Time: 23:14 ADULT Medications Given ADULT: Epinephrine 1 mg Route of Administration: IO Blood Pressure Systolic: 0 Blood Pressure Diastolic: 0 Respiratory Rate: 0 Medications and Responses #2: Medication Time: 23:14 ADULT Medications Given ADULT: Sodium Bacarbinate 50 meq EKG Rhythm: Asystole Blood Pressure Systolic: 0 Blood Pressure Diastolic: 0 Respiratory Rate: 0 EKG Rhythm: Asystole Nurses Notes Gore Coma Scale Eye Opening: None (1) Malcom Coma Scale Verbal: None (1) Gore Coma Scale Motor: None (1) Pupil Reaction: Non Reactive Bedside Blood Glucose: 485 EKG Rhythm: Asystole Time Code Ended Time Code Ended: 23:15 Outcome of code: Unsuccessful Patient pronounced by: Dr. Ortega Family notified: Yes Attending called: Yes Code Team Present: Dr. Lary Ortega, [employer] [facility] trail maintenance worker, Mignon Palacio RT, Ed BIOMEDICAL SERVICE ENGINEER, Remigio BIOMEDICAL SERVICE ENGINEER, Magali BIOMEDICAL SERVICE ENGINEER, Clarence EMT, Jose COTTON RN Post Resuscitation Neurologica Pupil Size: 6 Comment: Dilated fixed, unresponsive to light JOSE IVY Jul 05, 2025 00:26
== END 2025-07-04 23:15 ==
LOC: EDBD 23:11 → ER 23:11 → EDSEX 23:11 → EDUNIT# 23:11 → ER 23:15
DX: I46.9 Cardiac arrest, cause unspecified (principal); I25.10 Atherosclerotic heart disease of native coronary artery without angina pectoris; I11.0 Hypertensive heart disease with heart failure; I50.9 Heart failure, unspecified; E11.9 Type 2 diabetes mellitus without complications; Z79.899 Other long term (current) drug therapy
CPT/HCPCS: 31500; 82947; 82950; 92950